=== PATIENT | male | born 1965 | race Caucasian/White ===

== ENCOUNTER 2020-10-11 14:21 | Outpatient (CLI) | payer OTHER | END 2020-10-11 14:22 | disposition home or self-care (01) | LOC: CSHULT 14:21 | PROVIDERS: ATTEND Family Medicine | DX: Z87.442 Personal history of urinary calculi (principal); M25.511 Pain in right shoulder; N20.0 Calculus of kidney; N21.0 Calculus in bladder; M19.012 Primary osteoarthritis, left shoulder; M19.011 Primary osteoarthritis, right shoulder | CPT/HCPCS: 76770 ==